=== PATIENT | male | born 1970 | race Caucasian/White ===

== ENCOUNTER 2020-04-01 13:00 | Emergency (ER) | payer SELFPAY ==
[~2020-04-01] VITALS: Ht 165.1 cm; Wt 81.2 kg
--- NOTE | 2020-04-01 13:30 | NUR ---
CONCRETE FINISHER: PT AMBULATORY TO ROOM WITH STEADY GAIT AT THIS TIME FROM LOBBY WITH TOWEL CABINET REPAIRER
--- NOTE | 2020-04-01 14:08 | NUR ---
pt states that has been having intermitten right hand numbness, started saturday night,
[2020-04-01 14:35] LABS: BASOPHILS % (AUTO) 1 % (0-1); EOSINOPHILS % (AUTO) 1 % (1-7); LYMPHOCYTES % (AUTO) 33 % (22-44); MEAN PLATELET VOLUME 8.1 fL (7.4-10.4); MONOCYTES % (AUTO) 8 % (2-9); NEUTROPHILS % (AUTO) 57 % (42-75); PLATELET COUNT 340 x10^3/uL (130-400); RED BLOOD COUNT 5.25 x10^6/uL (4.38-5.82); RED CELL DISTRIBUTION WIDTH 13.5 % (9.4-14.8)
[2020-04-01 14:40] LABS: CALCIUM 9.3 mg/dL (8.5-10.1); CREATININE 0.88 mg/dL (0.7-1.3)
[2020-04-01 14:48] LABS: ANION GAP 8 mmol/L (5-15); CHLORIDE 109 mmol/L (98-107)
[2020-04-01 15:13] LABS: MD NO
--- NOTE | 2020-04-01 15:23 | NUR ---
PT IN ROOM NO DISTRESS, VSS
[2020-04-01 15:24] VITALS: BP 148/62
== END 2020-04-01 16:11 | disposition home or self-care (01) ==
LOC: ED 13:40
DX: I10 Essential (primary) hypertension (principal); R20.0 Anesthesia of skin
CPT/HCPCS: 36415; 80048; 83036; 85025; 99283